=== PATIENT | female | born 1985 | race Caucasian/White ===

== ENCOUNTER 2021-09-09 13:01 | Emergency (ER) | payer BC ==
[~2021-09-09] VITALS: Ht 167.6 cm; Wt 75.0 kg
[2021-09-09 13:06] VITALS: BP 125/79
[2021-09-09 14:49] LABS: CLARITY URINE CLEAR (CLEAR); COLOR URINE YELLOW (YELLOW); KETONES URINE 2+ (NEGATIVE); LEUKOCYTE ESTERASE URINE NEGATIVE (NEGATIVE); NITRITE URINE NEGATIVE (NEGATIVE); OCCULT BLOOD URINE NEGATIVE (NEGATIVE); PROTEIN URINE TRACE (NEGATIVE); SPECIFIC GRAVITY URINE 1.027 (1.005-1.030); UROBILINOGEN URINE 0.2 E.U./dL (0.2-1.0)
[2021-09-09] MEDS: VISCOUS LIDOCAINE 2% 15 ML UDC PO STA (15:00)
[2021-09-09] MEDS: MAGNESIUM/ALUMINUM HYDROXIDE/SIMETHICONE 30ML UDC PO STA (15:00)
[2021-09-09] MEDS: FAMOTIDINE 20MG TABLET PO ONE (15:00)
[2021-09-09 15:22] LABS: CHLORIDE 106 mEq/L (98-107)
[2021-09-09 15:25] LABS: BASOPHILS % 0.5 % (0.0-2.0); EOSINOPHILS % 0.1 % (0.0-5.0); HEMATOCRIT. 41.3 % (36.0-48.0); HEMOGLOBIN. 13.7 g/dL (12.0-16.0); LYMPHOCYTES % 19.7 % (20.0-50.0); MEAN CORPUSCULAR HEMOGLOBIN 29.7 pg (28.0-32.0); MEAN CORPUSCULAR VOLUME 89.7 fL (81.0-99.0); MEAN PLATELET VOLUME 8.4 fl (7.4-10.4); MONOCYTES % 4.4 % (2.0-8.0); NEUTROPHILS % 75.3 % (40.0-76.0); PLATELET 311 x1000/uL (130-400); RED CELL DISTRIBUTION WIDTH 13.4 % (11.6-14.6)
[2021-09-09 15:39] LABS: HCG SCREEN NEGATIVE
[2021-09-09] MEDS ORDERED: IBUP-2028 MT (15:50)
[2021-09-09] MEDS ORDERED: CEPH500C2 MT (15:50)
== END 2021-09-09 16:16 | disposition home or self-care (01) ==
LOC: ER 13:01
DX: N39.0 Urinary tract infection, site not specified (principal)
CPT/HCPCS: 36415; 76705; 80053; 81003; 81025; 84703; 85025; 99284